=== PATIENT | female | born 1970 | race Caucasian/White ===

== ENCOUNTER 2016-07-29 18:49 | Emergency (ER) | payer BC ==
[~2016-07-29] VITALS: Ht 152.4 cm; Wt 69.0 kg
[~2016-07-29 18:49] MED LIST: DOXY100T20 PO; IBUP-1542 PO; LORA1TAB PO; PHEN-538 PO
[2016-07-29 18:55] VITALS: Ht 152.4 cm; Wt 69.0 kg
[2016-07-29] MEDS ORDERED: KETOROLAC 30 MG INJ IV STA (19:40)
[2016-07-29 19:54] LABS: URINE BLOOD (Dip) POC Trace-lysed (NEGATIVE)
[2016-07-29 20:11] LABS: ADD SCAN DIFF NO
[2016-07-29 20:13] LABS: BASOPHILS % 0.2 % (0.0-2.0); EOSINOPHILS % 0.1 % (0.0-7.0); HEMATOCRIT 34.5 % (37.0-47.0); HEMOGLOBIN 11.9 g/dl (12.0-16.0); LYMPHOCYTES # 1.2 10^3/ul (0.8-2.9); LYMPHOCYTES % 9.6 % (15.0-51.0); MEAN CORPUSCULAR HEMOGLOBIN 32.4 pg (29.0-33.0); MEAN CORPUSCULAR HGB CONC 34.5 g/dl (32.0-37.0); MEAN PLATELET VOLUME 9.9 fl (7.4-10.4); MONOCYTE # 0.8 10^3/ul (0.3-0.9); MONOCYTES % 6.2 % (0.0-11.0); NEUTROPHIL # 10.4 10^3/ul (1.6-7.5); NEUTROPHILS % 83.5 % (39.0-77.0); PLATELET COUNT 253 10^3/UL (140-415); RED BLOOD COUNT 3.67 10^6/ul (4.20-5.40); WHITE BLOOD COUNT 12.4 10^3/ul (4.8-10.8)
[2016-07-29 20:15] LABS: ADD UMIC YES; URINE BILIRUBIN (Dip) NEGATIVE (NEGATIVE); URINE BLOOD (Dip) TRACE (NEGATIVE); URINE COLOR AMBER (YELLOW); URINE KETONES (Dip) NEGATIVE (NEGATIVE); URINE LEUKOCYTE ESTERASE (Dip) 3+ (NEGATIVE); URINE NITRITE (Dip) POSITIVE (NEGATIVE); URINE TOTAL PROTEIN (Dip) TRACE (NEGATIVE); URINE UROBILINOGEN (Dip) 2.0 E.U./dL (0.1-1.0)
[2016-07-29 20:27] LABS: ALBUMIN 4.1 g/dl (3.3-4.9)
[2016-07-29 20:28] LABS: POTASSIUM 3.9 mmol/L (3.5-5.1)
[2016-07-29 20:30] LABS: ALBUMIN/GLOBULIN RATIO 1.32; BILIRUBIN,INDIRECT 0.6 mg/dl (0-1.1); BILIRUBIN,TOTAL 0.6 mg/dl (0.2-1.3); CALCIUM 8.8 mg/dl (8.4-10.2); CREATININE 0.76 mg/dl (0.44-1.00); TOTAL PROTEIN 7.2 g/dl (6.1-8.1)
[2016-07-29 20:37] LABS: BACTERIA,URINE MODERATE; SQUAMOUS EPITHELIAL CELL,UR MODERATE; URINE RBCS 0-2 /HPF (0)
[2016-07-29] MEDS ORDERED: CEPH-443 PO (21:30)
[2016-07-29] MEDS ORDERED: IBUP-1542 PO (21:31)
[2016-07-29 21:39] VITALS: BP 112/59; PULSE 73; RESP 16; TEMP 99.9
--- NOTE | 2016-07-29 21:56 | ERD ---
ER Documentation Chief Complaint Date/Time DATE: 07/29/16 TIME: 21:50 Chief Complaint difuse lower abdominal pain for past 3 days HPI Patient is a 46-year-old female with a past medical history of anxiety, status post cholecystectomy, renal stones who presents to the emergency department with diffuse lower abdominal pain for the last 3 days. Patient states the pain is in her lower back region as well as suprapubic region. Patient reports taking Gas-X with no relief of symptoms. Patient does report chills however she denies any fevers. Patient denies any nausea, vomiting or diarrhea.. Patient does complain of dysuria and frequency. Patient denies any hematuria. Patient denies any recent travel. No sick contacts. Patient's last menstrual period was on 07-16-16. ROS All systems reviewed and are negative except as per history of present illness. Medications Home Meds Active Scripts Ibuprofen* (Motrin*) 600 Mg Tab, 600 MG PO Q6, #30 TAB Prov:UMESH GOMEZ PA-C 07/29/16 Cephalexin* (Keflex*) 500 Mg Capsule, 500 MG PO QID for 7 Days, CAP Prov:UMESH GOMEZ PA-C 07/29/16 Lorazepam* (Lorazepam*) 1 Mg Tablet, 1 MG PO HS Y for ANXIETY, #10 TAB Prov:JORGE DELAROSA PA-C 11/27/15 Ibuprofen* (Motrin*) 600 Mg Tab, 600 MG PO Q6, #30 TAB Prov:NORRIS FLETCHER 07/04/15 Doxycycline Hyclate* (Doxycycline Hyclate*) 100 Mg Tablet.dr, 100 MG PO BID for 10 Days, TAB Prov:PETE FREEMAN PA-C 03/22/15 Phenazopyridine Hcl* (Pyridium*) 200 Mg Tab, 200 MG PO TID for 2 Days, TAB Prov:PETE FREEMAN PA-C 03/22/15 Allergies Allergies: Coded Allergies: No Known Drug Allergy (Verified Allergy, Unknown, 12/15/13) PMhx/Soc History of Surgery: Yes (GALLBLADDER REMOVED X 4 YEARS AGO, tubal ligation.) Anesthesia Reaction: No Hx Neurological Disorder: No Hx Respiratory Disorders: No Hx Cardiac Disorders: No Hx Psychiatric Problems: Yes (ANXIETY) Hx Miscellaneous Medical Probl: Yes (kidney stones) Hx Alcohol Use: No Hx Substance Use: No Hx Tobacco Use: No Smoking Status: Never smoker FmHx Family History: No diabetes Physical Exam Vitals Vital Signs Date Time Temp Pulse Resp B/P Pulse Ox O2 Delivery O2 Flow Rate FiO2 07/29/16 21:39 99.9 73 16 112/59 100 Room Air 07/29/16 18:55 98.6 78 18 122/68 97 Physical Exam GENERAL: Well-developed, well-nourished female. Appears in no acute distress. Speaking in full sentences HEAD: Normocephalic, atraumatic. EYES: Pupils are equally reactive bilaterally. EOMs grossly intact. No conjunctival erythema. ENT: Moist mucous membranes. No uvula deviation. No kissing tonsils. NECK: Supple. No meningismus. Normal range of motion of the neck. LUNG: Clear to auscultation bilaterally. No rhonchi, wheezing, rales or coarse breath sounds. HEART: Regular rate and rhythm. No murmurs, rubs or gallops. ABDOMEN: No scars, ecchymosis or rashes noted. Soft, and nondistended. Tender to palpation in the suprapubic region. Positive bowel sounds in all four quadrants. No rebound tenderness, no guarding. (-) McBurney's point tenderness. Right CVA tenderness noted. BACK: No midline tenderness. EXTREMITIES: Equal pulses bilaterally. No peripheral clubbing, cyanosis or edema. No unilateral leg swelling. NEUROLOGIC: Alert and oriented. Moving all four extremities without any difficulty. Normal speech. Steady gait. SKIN: Normal color. Warm and dry. No rashes or lesions. Result Diagram: 07/29/16199907/29/161999 Results 24 hrs Laboratory Tests Test 07/29/16 19:45 07/29/16 19:57 07/29/16 20:00 Urine Color DERRICK Urine Clarity SLIGHTLY CLOUDY Urine pH 5.0 Urine Specific [place] <=1.005 Urine Ketones NEGATIVE Urine Nitrite POSITIVE Urine Bilirubin NEGATIVE Urine Urobilinogen 2.0 E.U./dL Urine Leukocyte Esterase 3+ Urine Microscopic RBC 0-2/HPF Urine Microscopic WBC 25-50/HPF Urine Squamous Epithelial Cells MODERATE Urine Bacteria MODERATE Urine Hemoglobin TRACE Urine Glucose 0.1%% Urine Total Protein TRACE Bedside Urine pH (LAB) 7.0 Bedside Urine Protein (LAB) Trace Bedside Urine Glucose (UA) 0.1% Bedside Urine Ketones (LAB) Negative Bedside Urine Blood Trace-lysed Bedside Urine Nitrite (LAB) Positive Bedside Urine Leukocyte Esterase (L 1+ White Blood Count 12.410^3/ul Red Blood Count 3.6710^6/ul Hemoglobin 11.9g/dl Hematocrit 34.5% Mean Corpuscular Volume 94.0fl Mean Corpuscular Hemoglobin 32.4pg Mean Corpuscular Hemoglobin Concent 34.5g/dl Red Cell Distribution Width 13.0% Platelet Count 34277^3/UL Mean Platelet Volume 9.9fl Neutrophils % 83.5% Lymphocytes % 9.6% Monocytes % 6.2% Eosinophils % 0.1% Basophils % 0.2% Nucleated Red Blood Cells % 0.0/100WBC Neutrophils # 10.410^3/ul Lymphocytes # 1.210^3/ul Monocytes # 0.810^3/ul Eosinophils # 0.010^3/ul Basophils # 0.010^3/ul Nucleated Red Blood Cells # 0.010^3/ul Sodium Level 139mmol/L Potassium Level 3.9mmol/L Chloride Level 111mmol/L Carbon Dioxide Level 25mmol/L Anion Gap 7 Blood Urea Nitrogen 9mg/dl Creatinine 0.76mg/dl Glucose Level 125mg/dl Calcium Level 8.8mg/dl Total Bilirubin 0.6mg/dl Direct Bilirubin 0.00mg/dl Indirect Bilirubin 0.6mg/dl Aspartate Amino Transf (AST/SGOT) 26IU/L Alanine Aminotransferase (ALT/SGPT) 33IU/L Alkaline Phosphatase 87IU/L Total Protein 7.2g/dl Albumin 4.1g/dl Globulin 3.10g/dl Albumin/Globulin Ratio 1.32 Lipase 71U/L Serum HCG, Qualitative NEGATIVE Current Medications Medications (Trade) Dose Ordered Sig/Renetta Route PRN Reason Start Time Stop Time Status Last Admin Dose Admin Ketorolac Tromethamine (Toradol) 30 mg ONCE STAT IV 07/29/16 19:40 07/29/16 19:42 DC 07/29/16 20:43 Procedures/MDM MEDICAL DECISION MAKING: This is a 46-year-old female who presents with suprapubic pain, dysuria and frequency. Patient denied any nausea, vomiting, fevers. Vital signs were reviewed. Patient was afebrile. HCG was negative. CBC showed a WBC level of 12.4. CMP showed no evidence of electrolyte abnormalities, severe acidosis, alkalosis, renal failure, or liver disease. Urinalysis showed positive nitrites , leukocyte esterase, 25-50 WBCs noted. Given these findings, the patient's presentation is most consistent with urinary tract infection versus early pyelonephritis. I have a much lower clinical concern for nephrolithiasis, appendicitis, diverticulitis, constipation, ectopic , PID, ovarian torsion. PRESCRIPTIONS: Keflex, Ibuprofen DISCHARGE: At this time, patient is stable for discharge and outpatient management. I have instructed the patient to follow-up with his/her primary care physician in 1-2 days. Patient should repeat UA in 2 weeks to check for resolution of urinary tract infection. If symptoms persist, patient may need to see a specialist for further examinations and testing. I have instructed the patient to promptly return to the ER at any time for any new or worsening symptoms including increased pain, fever, nausea, vomiting, urinary changes or weakness. The patient and/or family expressed understanding of and agreement with this plan. All questions were answered. Home care instructions were provided. Departure Diagnosis: Primary Impression: UTI (urinary tract infection) Urinary tract infection type: site unspecified Hematuria presence: with hematuria Qualified Code: N39.0 - Urinary tract infection with hematuria, site unspecified Condition: Stable Patient Instructions: Understanding Urinary Tract Infections (UTIs) Additional Instructions: Call your primary care doctor TOMORROW for an appointment during the next 1-2 days.See the doctor sooner or return here if your condition worsens before your appointment time. UMESH GOMEZ PA-C July 29, 2016 21:56
== END 2016-07-29 21:41 | disposition home or self-care (01) ==
LOC: FTE 18:49
DX: N39.0 Urinary tract infection, site not specified (principal); R31.9 Hematuria, unspecified; R10.2 Pelvic and perineal pain
CPT/HCPCS: 36415; 80053; 81001; 83690; 84703; 85025; 96374; 99284; J1885; 81003

== ENCOUNTER 2018-08-06 14:45 | Emergency (ER) | payer BC ==
[~2018-08-06] VITALS: Ht 142.2 cm; Wt 67.0 kg
[~2018-08-06 14:45] MED LIST changes: +CEPH-443 PO
[2018-08-06 14:55] VITALS: BP 106/63; PULSE 94; RESP 19; Ht 142.2 cm; Wt 67.0 kg
[2018-08-06] MEDS ORDERED: CEPH500C PO (15:48)
[2018-08-06] MEDS ORDERED: PRED20TA PO (15:48)
[2018-08-06] MEDS ORDERED: HYDR-4011 PO (15:48)
--- NOTE | 2018-08-06 15:50 | ERD ---
ER Documentation Chief Complaint Chief Complaint genital pain HPI 48-year-old female states she has had genital pain for the past 1 week. She notices painful bumps on her vagina. She also has dysuria. No hematuria or frequency. No fever. She does admit to recent unprotected sex and states she does not use any type of control. She states she has had this rash once before but it went away on its own. ROS All systems reviewed and are negative except as per history of present illness. Medications Home Meds Active Scripts Cephalexin* (Cephalexin*) 500 Mg Capsule, 500 MG PO Q8 for 5 Days, CAP Prov:RAFAEL MAC PA-C 08/06/18 Hydrocodone/Acetaminophen ([place] 5-325 Tablet) 1 Each Tablet, 1 EACH PO Q6, #15 TAB Prov:RAFAEL MAC PA-C 08/06/18 Prednisone* (Prednisone*) 20 Mg Tab, 60 MG PO DAILY for 5 Days, TAB Prov:RAFAEL MAC PA-C 08/06/18 Ibuprofen* (Motrin*) 600 Mg Tab, 600 MG PO Q6, #30 TAB Prov:UMESH GOMEZ 07/29/16 Cephalexin* (Keflex*) 500 Mg Capsule, 500 MG PO QID for 7 Days, CAP Prov:UMESH GOMEZ 07/29/16 Lorazepam* (Lorazepam*) 1 Mg Tablet, 1 MG PO HS PRN for ANXIETY, #10 TAB Prov:JORGE DELAROSA PA-C 11/27/15 Ibuprofen* (Motrin*) 600 Mg Tab, 600 MG PO Q6, #30 TAB Prov:NORRIS FLETCHER 07/04/15 Doxycycline Hyclate* (Doxycycline Hyclate*) 100 Mg Tablet.dr, 100 MG PO BID for 10 Days, TAB Prov:PETE FREEMAN PA-C 03/22/15 Phenazopyridine Hcl* (Pyridium*) 200 Mg Tab, 200 MG PO TID for 2 Days, TAB Prov:PETE FREEMAN PA-C 03/22/15 Allergies Allergies: Coded Allergies: No Known Drug Allergy (Verified Allergy, Unknown, 12/15/13) PMhx/Soc History of Surgery: Yes (GALLBLADDER REMOVED X 4 YEARS AGO, tubal ligation.) Anesthesia Reaction: No Hx Neurological Disorder: No Hx Respiratory Disorders: No Hx Cardiac Disorders: No Hx Psychiatric Problems: Yes (ANXIETY) Hx Miscellaneous Medical Probl: Yes (kidney stones) Hx Alcohol Use: No Hx Substance Use: No Hx Tobacco Use: No Smoking Status: Never smoker FmHx Family History: No diabetes Physical Exam Vitals Vital Signs Date Temp Pulse Resp B/P (MAP) Pulse Ox O2 O2 Flow FiO2 Time Delivery Rate 08/06/18 98.5 94 19 106/63 98 14:55 (77) Physical Exam Const: No acute distress Head: Atraumatic Eyes: Normal Conjunctiva ENT: Normal External Ears, Nose and Mouth. Neck: Full range of motion. No meningismus. Resp: Clear to auscultation bilaterally Cardio: Regular rate and rhythm, no murmurs Abd: Soft, non tender, non distended. Normal bowel sounds : Vesicular rash on labia, tender Results 24 hrs Laboratory Tests Test 08/06/18 15:36 Bedside Urine pH (LAB) 6.0 Bedside Urine Protein (LAB) Negative Bedside Urine Glucose (UA) Negative Bedside Urine Ketones (LAB) Negative Bedside Urine Blood Trace-lysed Bedside Urine Nitrite (LAB) Negative Bedside Urine Leukocyte Esterase (L 1+ POC Beta HCG, Qualitative NEGATIVE Procedures/MDM Is a 48-year-old female who presents with genital herpes. Urine also shows mild UTI. She will be treated outpatient with Keflex, prednisone, valacyclovir and [place] for pain. Patient counseled regarding my diagnostic impression and care plan. Prior to discharge all questions answered. Pt agrees with treatment plan and understands strict return precautions. Pt is instructed to follow up with primary care provider within 24-48 hours. Precautionary instructions provided including instructions to return to the ER if not improving or for any worsening or changing symptoms or concerns. Departure Diagnosis: Primary Impression: Genital herpes Additional Impression: UTI (urinary tract infection) Condition: Stable Patient Instructions: Herpes Genitalis, Hsv: Type Ii Additional Instructions: Llame al doctor MAANA y rolando rani SHAY PARA DENTRO DE 1-2 YOUNG.Dgale a la secretaria que nosotros le instruimos hacer esta shay.Avise o llame si valadez condicin se empeora antes de la shay. Regresa aqui si peor o no mejor. RAFAEL MAC PA-C Aug 06, 2018 15:50
[2018-08-06] MEDS ORDERED: VALA500T PO (15:51)
== END 2018-08-06 16:13 | disposition home or self-care (01) ==
LOC: FTE 14:45
DX: A60.09 Herpesviral infection of other urogenital tract (principal); N39.0 Urinary tract infection, site not specified
CPT/HCPCS: 81003; 81025; 99283

== ENCOUNTER 2018-09-17 19:46 | Emergency (ER) | payer BC ==
[~2018-09-17] VITALS: Ht 149.9 cm; Wt 67.9 kg
[~2018-09-17 19:46] MED LIST changes: +CEPH500C PO; +HYDR-4011 PO; +PRED20TA PO; +VALA500T PO
[2018-09-17 20:23] VITALS: Ht 149.9 cm; Wt 67.9 kg
[2018-09-17] MEDS ORDERED: PROCHLORPERAZINE 10 MG INJ IV STA (20:55)
[2018-09-17] MEDS ORDERED: SOD CHLORIDE 0.9% 1,000 ML IV STA (20:55)
[2018-09-17] MEDS ORDERED: KETOROLAC 60 MG INJ IM STA (20:55)
[2018-09-17] MEDS ORDERED: ONDANSETRON 4 MG INJ IV STA (20:55)
--- NOTE | 2018-09-17 22:18 | ERD ---
ER Documentation Chief Complaint Chief Complaint headache x 2 weeks HPI This is a 48-year-old [place]ayan-speaking female presents to the ED complaining of an intermittent headache x2 weeks. Patient reports a pressure-like sensation located retro-orbitally and radiating towards her occipital scalp. She reports sensitivity to light. No nausea, vomiting. No head trauma. No focal weakness. No neck stiffness. No fevers or rash. She states she has a history of migraine headaches today's headaches are similar but more intense. She is requesting CT of the head. No pain medications were taken prior to arrival. ROS All systems reviewed and are negative except as per history of present illness. Medications Home Meds Active Scripts Ibuprofen* (Motrin*) 600 Mg Tab, 600 MG PO Q6H PRN for PAIN AND OR ELEVATED TEMP, #30 TAB Prov:ALIDA BLANCA PA-C 09/17/18 valAcyclovir Hcl* (valACYclovir Hcl*) 500 Mg Tablet, 1000 MG PO BID for 7 Days, TAB Prov:RAFAEL MAC PA-C 08/06/18 Cephalexin* (Cephalexin*) 500 Mg Capsule, 500 MG PO Q8 for 5 Days, CAP Prov:RAFAEL MAC PA-C 08/06/18 Hydrocodone/Acetaminophen ([place] 5-325 Tablet) 1 Each Tablet, 1 EACH PO Q6, #15 TAB Prov:RAFAEL MAC PA-C 08/06/18 Prednisone* (Prednisone*) 20 Mg Tab, 60 MG PO DAILY for 5 Days, TAB Prov:RAFAEL MAC PA-C 08/06/18 Ibuprofen* (Motrin*) 600 Mg Tab, 600 MG PO Q6, #30 TAB Prov:UMESH GOMEZ PA-C 07/29/16 Cephalexin* (Keflex*) 500 Mg Capsule, 500 MG PO QID for 7 Days, CAP Prov:UMESH GOMEZ PA-C 07/29/16 Lorazepam* (Lorazepam*) 1 Mg Tablet, 1 MG PO HS PRN for ANXIETY, #10 TAB Prov:JORGE DELAROSA PA-C 11/27/15 Ibuprofen* (Motrin*) 600 Mg Tab, 600 MG PO Q6, #30 TAB Prov:NORRIS FLETCHER 07/04/15 Doxycycline Hyclate* (Doxycycline Hyclate*) 100 Mg Tablet.dr, 100 MG PO BID for 10 Days, TAB Prov:PETE,PETE DE LEON 03/22/15 Phenazopyridine Hcl* (Pyridium*) 200 Mg Tab, 200 MG PO TID for 2 Days, TAB Prov:PETEPETE MOISES 03/22/15 Allergies Allergies: Coded Allergies: No Known Drug Allergy (Verified Allergy, Unknown, 12/15/13) PMhx/Soc History of Surgery: Yes (GALLBLADDER REMOVED X 4 YEARS AGO, tubal ligation.) Anesthesia Reaction: No Hx Neurological Disorder: No Hx Respiratory Disorders: No Hx Cardiac Disorders: No Hx Psychiatric Problems: Yes (ANXIETY) Hx Miscellaneous Medical Probl: Yes (kidney stones) Hx Alcohol Use: No Hx Substance Use: No Hx Tobacco Use: No Smoking Status: Never smoker Physical Exam Vitals Vital Signs Date Temp Pulse Resp B/P (MAP) Pulse Ox O2 O2 Flow FiO2 Time Delivery Rate 09/17/18 97.4 75 18 153/68 98 20:23 (96) Physical Exam Const: No acute distress Head: Atraumatic Eyes: Normal Conjunctiva ENT: Normal External Ears, Nose and Mouth. Neck: Full range of motion. No meningismus. Resp: Clear to auscultation bilaterally Cardio: Regular rate and rhythm, no murmurs Abd: Soft, non tender, non distended. Normal bowel sounds Skin: No petechiae or rashes Back: No midline or flank tenderness Ext: No cyanosis, or edema Neuro: M/S: Alert and oriented Face: EOMI, face and pharynx with normal sensation and function Motor: Normal strength throughout Sensation: Normal sensation throughout Speech: Normal Cerebel: Normal coordination Normal gait Psych: Normal Mood and Affect Results 24 hrs Laboratory Tests Test 09/17/18 21:11 09/17/18 21:29 POC Beta HCG, Qualitative NEGATIVE NEGATIVE Current Medications Medications Dose Sig/Renetta Start Time Status Last (Trade) Ordered Route PRN Stop Time Admin Dose Reason Admin Sodium 1,000 ml @ Q1H STAT 09/17/18 DC 09/17/18 Chloride 1,000 mls/hr IV 20:55 21:26 09/17/18 21:54 10 mg ONCE STAT 09/17/18 DC Prochlorperaz IV 20:55 ine 09/17/18 22:03 (Compazine Inj) Ondansetron 4 mg ONCE STAT 09/17/18 DC 09/17/18 HCl (Zofran IV 20:55 21:25 Inj) 09/17/18 20:56 Ketorolac 15 mg ONCE STAT 09/17/18 DC 09/17/18 Tromethamine IM 20:55 21:25 (Toradol) 09/17/18 20:56 Procedures/MDM LABS & DIAGNOSTIC IMAGING: PROCEDURE: CT Brain without contrast. CLINICAL INDICATION: Headache. FINDINGS: The ventricles and sulci are age-appropriate. There is no intracranial hemorrhage, mass effect or midline shift. No abnormal intra-axial or extra- axial fluid collections are seen. The [place]/white matter differentiation is preserved. No acute skull abnormality is noted. The visualized paranasal sinuses are essentially clear. IMPRESSION: 1. No acute intracranial hemorrhage, transcortical infarction or mass effect. ED COURSE: The patient was given IV fluids, Toradol, Zofran The medication was well tolerated and the patient had market improvement in symptoms. The patient remained stable throughout ED course. MEDICAL DECISION MAKIN-year-old female with history of migraine headaches presents with exacerbation of her headache. She is neurovascular intact on physical exam however she requested CT head imaging. I discussed risks and benefits of imaging however patient insisted on CT which was unremarkable. History and work-up is consistent with primary headache. She has no focal nodule deficits and vital signs are normal. Clinical presentation not consistent with subarachnoid hemorrhage, epidural or subdural hematoma, IC mass, CVA, encephalitis or meningitis. Patient was discharge home with close follow up and mangement by PCP in 1 week. Strict return precautions discussed. PRESCRIPTIONS: Ibuprofen SPECIALIST FOLLOW UP RECOMMENDED: None Patient has been advised to follow up with primary care in 1-2 days. Departure Diagnosis: Primary Impression: Headache Headache type: unspecified Headache chronicity pattern: acute headache Intractability: not intractable Qualified Codes: R51 - Headache Condition: Stable Patient Instructions: Self-Care for Headaches Referrals: [facility] Usted se sr hecho un examen mdico de control que le indica que no est en rani condicin que requiera tratamiento urgente en el Departamento de Emergencia. Un estudio ms profundo y el tratamiento de valadez condicin pueden esperar sin ningn riesgo hasta que usted sea atendida/o en el consultorio de valadez mdico o rani clnica. Es responsabilidad suya arreglar rani kinsey para el seguimiento del leigha. MANEJO DE CONDICIONES NO URGENTES EN EL FUTURO 1) Si usted tiene un mdico de atencin primaria: Usted debera llamar a valadez mdico de atencin primaria antes de venir al departamento de emergencia. Despus de las horas de consultorio, valadez doctor o valadez asociado/a est disponible por telfono. El mdico o enfermero de suresh en el servicio telefnico puede asesorarle por genie medio para atender el problema, o leigha contrario se puede programar rani kinsey. 2) Si usted no tiene un mdico de atencin primaria: Llame al mdico o clnica de referencia que aparece abajo dorcas las horas de consultorio para hacer rani kinsey para que le vean. CLINICAS: [facility] [phone] [facility] [phone] [address] [facility] [phone] [address] [facility] [facility] [phone] [facility] [place] [id number] [phone] [facility] [phone] [facility] () Usted se sr hecho un examen mdico de control que le indica que no est en rani condicin que requiera tratamiento urgente en el Departamento de Emergencia. Un estudio ms profundo y el tratamiento de valadez condicin pueden esperar sin ningn riesgo hasta que usted sea atendida/o en el consultorio de valadez mdico o rani clnica. Es responsabilidad suya arreglar rani kinsey para el seguimiento del leigha. MANEJO DE CONDICIONES NO URGENTES EN EL FUTURO 1) Si usted tiene un mdico de atencin primaria: Usted debera llamar a valadez mdico de atencin primaria antes de venir al departamento de emergencia. Despus de las horas de consultorio, valadez doctor o valadez asociado/a est disponible por telfono. El mdico o enfermero de suresh en el servicio telefnico puede asesorarle por genie medio para atender el problema, o leigha contrario se puede programar rani kinsey. 2) Si usted no tiene un mdico de atencin primaria: Llame al mdico o condado institucions de referencia que aparece abajo dorcas las horas de consultorio para hacer rani kinsey para que le vean. SI USTED NO PUEDE PAGAR PARA VIVIAN UN MEDICO puede ir a: [facility] [phone] [place] [address] [facility] [address] [place] [address] [facility] [address] [place] [phone] Additional Instructions: Paciente aconseja volver a Departamento de urgencias inmediatamente para sntomas nuevos o que empeoran . Paciente aconseja posteriores con el PCP en 1-2 sal. Si el paciente no tiene ninguna de atencin primaria pueden seguir con [facility] [address] [place] [address] [address] ALIDA BLANCA PA-C Sep 17, 2018 22:18
[2018-09-17 22:51] VITALS: BP 145/78; PULSE 81; RESP 18
== END 2018-09-17 22:52 | disposition home or self-care (01) ==
LOC: FTE 19:46
DX: R51 Headache (principal)
CPT/HCPCS: 70450; 81025; 96361; 96372; 96374; 99285; J0780; J1885; J2405; J7030